=== PATIENT | female | born 1990 | race Caucasian/White ===

== ENCOUNTER 2017-07-22 09:19 | Emergency (ER) | payer OTHER ==
[2017-07-22] MEDS ORDERED: methylPREDNISolone 125 MG* 2 ML VIAL IV ONE (10:10)
[2017-07-22] MEDS ORDERED: Ketorolac INJ* 30 MG/ML 1 ML VIAL IV PUSH ONE (10:10)
--- NOTE | 2017-07-22 10:30 | ED ---
Back Pain - HPI Summary HPI Summary: Patient presents with lower back pain and radiculopathy into the right lower extremity which started a couple of days ago. She reports this started as right -sided lower back pain when she was doing exercises which included rotation at the waist with weight. Because she felt pain during the exercise, she stopped doing the exercise and has been trying to nurse this along over the past 3 weeks. She's been using heat alternating with ice with ibuprofen and Tylenol. Today she has a pain patch in place ovdr her lumbar spine which is helping her low back pain. Since she was getting better she didn't think she would need much more care but at some point decided to see a chiropractor 2 weeks ago for adjustment. She's had about 6 adjustments and her last adjustment resulted in a "pins and needles" feeling going down her right leg. She does admit she had some anterior thigh decreased sensation last week. She denies weakness or numbness and she has no change in bowel or bladder habits. She is concerned about her paresthesia symptoms as well as her pain which is not subsiding with Tylenol any longer. No known history of back issues. On OBC - just finished menstrual cycle - History of Current Complaint Chief Complaint: EDExtremityLower Stated Complaint: RT LEG PAIN Time Seen by Provider: 07/22/17 09:46 Hx Obtained From: Patient Pain Intensity: 9 - Allergies/Home Medications Allergies/Adverse Reactions: Allergies Allergy/AdvReac Type Severity Reaction Status Date / Time No Known Allergies Allergy Verified 07/22/17 09:37 Home Medications: Home Medications Cholecalciferol TAB* [Vitamin D TAB*] 1,000 unit PO DAILY 07/22/17 [History Confirmed 07/22/17] Ferrous Sulfate TAB* 325 mg PO DAILY 07/22/17 [History Confirmed 07/22/17] Norgestimate-Ethinyl Estradiol [Tri-Previfem Tablet] 1 tab PO DAILY 07/22/17 [ History Confirmed 07/22/17] PMH/Surg Hx/FS Hx/Imm Hx Previously Healthy: Yes Endocrine/Hematology History: Denies: Hx Anticoagulant Therapy, Hx Blood Disorders Infectious Disease History: No Infectious Disease History: Denies: Traveled Outside the [place] in Last 30 Days - Family History Known Family History: Positive: Other - father - h/o disc issues in spine - Social History Occupation: Student Lives: Dormitory/Roommates Alcohol Use: Rare Hx Substance Use: No Substance Use Type: Reports: None Hx Tobacco Use: No Smoking Status (MU): Never Smoked Tobacco Review of Systems Constitutional: Negative Negative: Chest Pain Negative: Shortness Of Breath Gastrointestinal: Negative Genitourinary: Negative Negative: incontinence Positive: Arthralgia, Myalgia Skin: Negative Positive: Paresthesia. Negative: Headache, Weakness, Numbness Positive: Anxious All Other Systems Reviewed And Are Negative: Yes Physical Exam Triage Information Reviewed: Yes Vital Signs On Initial Exam: Initial Vitals Temp Pulse Resp BP Pulse Ox 97.7 F 89 16 125/75 98 07/22/17 09:35 07/22/17 09:35 07/22/17 09:35 07/22/17 09:35 07/22/17 09:35 Vital Signs Reviewed: Yes Appearance: Positive: Well-Appearing, Pain Distress - mild to moderate - pt standing, Thin Skin: Positive: Warm, Skin Color Reflects Adequate Perfusion, Dry - patch over lumbar region - otherwise, no abnormal skin findings Head/Face: Positive: Normal Head/Face Inspection Eyes: Positive: Normal, EOMI ENT: Positive: Hearing grossly normal, Pharynx normal - mucosa moist Neck: Positive: Supple Respiratory/Lung Sounds: Positive: Breath Sounds Present Cardiovascular: Positive: Pulses are Symmetrical in both Upper and Lower Extremities Musculoskeletal: Positive: Normal, Strength/ROM Intact Neurological: Positive: Sensory/Motor Intact - pt has 5/5 strength LE's, sensation intact w/ gross touch - reports "pins and needles" sensation over Rt leg., Alert, Oriented to Person Place, Time, CN Intact II-III, Reflexes Intact Psychiatric: Positive: Anxious - tearful at times - concerned but polite, cooperative Diagnostics - Vital Signs Vital Signs Temp Pulse Resp BP Pulse Ox 07/22/17 09:35 97.7 F 89 16 125/75 98 - Laboratory Lab Statement: Any lab studies that have been ordered have been reviewed, and results considered in the medical decision making process. Re-Evaluation - Re-Evaluation First Eval Change: Improved - Rt leg still aches but pins and needles sensation has resolved - neurovasc still intact Back Pain Course/Dx - Course Course Of Treatment: Pt presents w/ worsening Rt lumbar radiculopathy. Improved w/ toradol, solumedrol and dizepam. Lumbar XR reveals scoliosis and mild DDD. Advised close f/u w/ PCP and return to ED if danger s/sx present. - Diagnoses Provider Diagnoses: Lumbar radiculopathy, Scoliosis, Degenerative lumbar disc Discharge - Sign-Out/Discharge Documenting (check all that apply): Discharge/Admit/Transfer - Discharge Plan Condition: Stable Disposition: HOME Prescriptions: Ibuprofen TAB* [Motrin TAB* 800 MG] 800 mg PO Q8HR PRN #20 tab PRN Reason: Pain Patient Education Materials: Lumbar Radiculopathy (ED), Degenerative Disc Disease (ED) Referrals: [facility] [place] [facility] [Outside] [facility] [Outside] Additional Instructions: Your XR reveals scoliosis and mild degenerative disc disease. Rest, alternate heat with ice, gentle stretches and forward movement only. Avoid twisting rotating lifting bending squatting, etc. Take medications as recommended for pain. Follow-up with PCP Thursday or Thursday. To local contacts have been provided for you. Call today to schedule an appointment. *If in the meantime you develop numbness, weakness, change in bowel or bladder habits, return to the emergency department. - Billing Disposition and Condition Condition: STABLE Disposition: Home
[2017-07-22] MEDS ORDERED: Diazepam TAB(*) 5 MG PO ONE (10:31)
--- NOTE | 2017-07-22 12:53 | RAD ---
HISTORY: Right lumbar radiculopathy COMPARISONS: None VIEWS: 3 , Frontal, lateral, and coned-down lateral sacral views of the lumbar spine FINDINGS: ALIGNMENT: There is a trace scoliotic curvature of the spine. VERTEBRAL BODIES: The vertebral body heights are normal. The interpedicular distances are normal. JOINTS: The facet joints are normal. INTERVERTEBRAL DISCS: There is mild diffuse loss of intervertebral disc height. SOFT TISSUE: Unremarkable. OTHER: The pelvis is unremarkable. The lung bases are clear. IMPRESSION: 1. MINIMAL SCOLIOSIS. 2. MILD DEGENERATIVE DISC DISEASE.
[2017-07-22 13:25] VITALS: BP 107/58
== END 2017-07-22 13:23 | disposition home or self-care (01) ==
LOC: ED 09:19
DX: M54.16 Radiculopathy, lumbar region (principal); M41.26 Other idiopathic scoliosis, lumbar region; M51.36 Other intervertebral disc degeneration, lumbar region
CPT/HCPCS: 72100; 96374; 96375; 99282; A9270-GY; J1885; J2930